=== PATIENT | female | born 1945 | race Caucasian/White ===

== ENCOUNTER → 2017-02-06 | Outpatient (CLI) | payer MEDICARE ==
[2016-06-18 15:12] VITALS: BP 137/73
[~2017-02-06] MED LIST: ALEN70TA3 PO; ASPI81TA2 PO; ATEN100T PO; DICY10CA53 PO; GABA600T2 PO; GLIP5TAB10 PO; LEVO125T5 PO; LIPITOR80 MG PO; LISI-334 PO; MAG30ORA2 PO; METF500T4 PO; NIAC500T PO; OMEP20TA63 PO; ONDA4TAB12 PO; PARO30TA3 PO; lortab; tricor
--- NOTE | 2017-02-07 13:56 | RAD ---
DATE: 02/06/2017 EXAM: DIGITAL SCREEN BILAT W/CAD HISTORY: Screening. The positive family history for breast malignancy is noted COMPARISON: 02/26/2016 This study was interpreted with the benefit of Computerized Aided Detection (CAD). FINDINGS: The breast parenchyma shows scattered fibroglandular densities. Breast parenchyma level B. There is a density in the right breast on the CC view laterally virtually identical to an examination 02/05/2015. Occasional benign-appearing calcifications are noted in both breasts. Lymph nodes are noted in both axilla left greater than right. A significant change in the appearance of the breasts compared to the previous exam is not seen. IMPRESSION: Benign finding BI-RADS CATEGORY: 2 BENIGN FINDING(S) RECOMMENDED FOLLOW-UP: 12M 12 MONTH FOLLOW-UP PQRS compliance statement: Patient information was entered into a reminder system with a target due date 02/06/2018 for the next mammogram. Mammography is a sensitive method for finding small breast cancers, but it does not detect them all and is not a substitute for careful clinical examination. A negative mammogram does not negate a clinically suspicious finding and should not result in delay in biopsying a clinically suspicious abnormality. "Our facility is accredited by the [employer] Mammography Program."
== END | disposition home or self-care (01) ==
LOC: MAMMO 13:39
PROVIDERS: ATTEND Family Medicine
DX: Z12.31 Encounter for screening mammogram for malignant neoplasm of breast (principal)
CPT/HCPCS: G0202; 77067

== ENCOUNTER → 2017-03-22 | Day surgery (SDC) | payer BC, MEDICARE ==
[~2017-03-22] MED LIST changes: +CALC600T4 PO; +FENO160T PO; +HYDR-2680 PO; +IV RINGERS,LACTATED 1000ML 1,000 ML IV SCH; +LIDOCAINE 2% PF Vial for OR 5 ML VIAL. ONE; +MV-M1TAB7 PO; +PROPOFOL 40 ML IV ONE
[2017-03-22 09:00] VITALS: BP 126/67
--- NOTE | 2017-03-22 23:43 | HP ---
ADMIT DATE: 03/22/2017 REFERRING PHYSICIAN: Dr. Gildardo Ba. HISTORY OF PRESENT ILLNESS: This is a 72-year-old female whose past medical history is significant for hypothyroidism, diabetes, hypertension, hyperlipidemia, depression and dysphagia and also history of colonic polyps seen with change in bowel habits. She has alternating diarrhea and constipation with diffuse abdominal pain. No bleeding is noted. Weight is decreased approximately 10 pounds since being seen in the office. She also noted dysphagia for solids in the substernal location and minimal heartburn is noted. Previous endoscopy had been postponed due to fever. She does take metformin as noted as well with the diarrhea and is here today for further evaluation. PAST MEDICAL HISTORY: History of colon polyps, hypothyroidism, diabetes, hypertension, hyperlipidemia and organic heart disease. FAMILY AND SOCIAL HISTORY: There is a history of hypertension with parents as child, diabetes with parent, sibling and child, cerebrovascular accident with her father and ulcerative colitis with her mother. She is a former smoker. She does not drink at this time. MEDICATIONS: Include Fosamax, aspirin, atenolol, atorvastatin, dicyclomine, fenofibrate, gabapentin, glipizide, hydrocodone, ____, lisinopril, metformin, niacin and omeprazole. REVIEW OF SYSTEMS: Per records. PAST SURGICAL HISTORY: Significant for hemorrhoidectomy, hysterectomy, cholecystectomy, appendectomy and breast surgery. PHYSICAL EXAMINATION: VITAL SIGNS: Temperature is 98.5, pulse 79, respiration rate 18. HEENT: Normocephalic, atraumatic head. Pupils and extraocular muscles not tested. Sclerae anicteric. NECK: Supple. LUNGS: Clear. CARDIOVASCULAR: Reveals an S1, S2 without S3, S4 or appreciable murmur. ABDOMEN: Soft abdomen, normal bowel sounds, without appreciable hepatosplenomegaly. Epigastric tenderness to palpation. Multiple surgical incisions are noted. EXTREMITIES: Reveals no cyanosis, clubbing or edema. IMPRESSION: 1. Dysphagia, etiology is to be determined. Differential includes Schatzki's ring, malignancy, Fosamax induced distal stricture, Camacho's, achalasia, eosinophilic esophagitis. We will therefore recommend upper endoscopy, possible biopsy and dilatation. Risks and benefits of procedure including risk of hemorrhage or perforation were discussed. The patient is willing to proceed at this time. 2. History of colon polyps, change in bowel habits. Differential includes metformin-induced diarrhea, irritable bowel syndrome, collagenous colitis, inflammatory bowel disease, colon polyps, colon cancer among others. We will, therefore, recommend colonoscopy to further assess. YARY PHIPPS MD DR: Buzz JOB#: [id number] / [id number]
--- NOTE | 2017-03-24 17:20 | PATHOLOGY ---
PATHOLOGY REPORT * * * * * * * * FINAL DIAGNOSIS: Random colon biopsy: - Focal mild acute colitis. See comment. COMMENT: Sections of the random colon biopsy reveal multiple segments of colonic mucosa. There are patchy areas showing a few neutrophils within the lamina propria. The findings are suggestive of an acute self limited colitis. There is no evidence of a chronic destructive colitis, lymphocytic colitis, or collagenous colitis. REPORT ELECTRONICALLY SIGNED BY: Te Scanlon M.D. DATE/TIME: 03/24/2017 17:19 * * * * * * * * GROSS PATHOLOGY: Received in formalin labeled "Ermias Colindres, random colon biopsy," are multiple segments of driver soft tissue measuring 0.8 cm in aggregate dimensions and ranging from 0.1 to 0.3 cm in maximum dimension. The specimen is submitted entirely in cassette A1. (SNA; 03/23/2017) INITIAL CPT CODE(S): A; 72226 Professional services performed by [facility] [place] [address] Technical services performed by [facility] at [address] [place] [address]. SPECIMEN(S) RECEIVED: A.Random colon biopsy CLINICAL HISTORY: Diarrhea, abdominal pain, dysphagia; r/o microscopic colitis PATIENT: ERMIAS JOYA /AGE: 201/14/1945 (Age: 72) PATIENT #: [id number] ALT CASE #: SPECIMEN COLLECTION DATE: 03/22/2017 SPECIMEN RECEIVED DATE: 03/22/2017 [facility] - [address] [place] [address] - PHONE: [phone] * * * END OF REPORT * * *
== END | disposition home or self-care (01) ==
LOC: ENDOS 07:20
PROVIDERS: ATTEND Internal Medicine Gastroenterology
DX: K64.0 First degree hemorrhoids (principal); K29.70 Gastritis, unspecified, without bleeding; K22.2 Esophageal obstruction; E78.00 Pure hypercholesterolemia, unspecified; I10 Essential (primary) hypertension; E11.9 Type 2 diabetes mellitus without complications; E03.9 Hypothyroidism, unspecified; F41.9 Anxiety disorder, unspecified; F32.9 Major depressive disorder, single episode, unspecified; Z90.49 Acquired absence of other specified parts of digestive tract; Z90.710 Acquired absence of both cervix and uterus
CPT/HCPCS: 43235; 43450; 45380; J2704; 88305

== ENCOUNTER 2017-11-30 20:33 | Inpatient (IN) | payer BC ==
[2017-11-30 23:30] LABS: ADD MAN DIFF? NO
[2017-11-30 23:32] LABS: BASO # 0.1 x10^3/uL (0.0-0.2); BASO % 1 % (0-3); EOS % 0 % (0-3); HEMATOCRIT 39.2 % (36.0-47.0); LYMPH # 2.2 x10^3/uL (1.0-4.8); LYMPH % 15 % (24-48); MEAN CORPUSCULAR HEMOGLOBIN 31 pg (25-35); MEAN CORPUSCULAR HGB CONC 33 g/dL (31-37); MEAN CORPUSCULAR VOLUME 93 fL (79-100); MONO # 0.7 x10^3/uL (0.0-1.1); MONO % 5 % (0-9); NEUT # 11.6 x10^3uL (1.8-7.7); NEUT % 79 % (31-73); PLATELET COUNT 281 x10^3/uL (140-400); RED BLOOD COUNT 4.24 x10^6/uL (3.50-5.40); RED CELL DISTRIBUTION WIDTH 13.1 % (11.5-14.5); WHITE BLOOD COUNT 14.7 x10^3/uL (4.0-11.0)
[2017-11-30 23:43] LABS: ANION GAP 11 (6-14); BLOOD UREA NITROGEN 10 mg/dL (7-20); BUN/CREATININE RATIO 17 (6-20); CALCIUM 9.1 mg/dL (8.5-10.1); CARBON DIOXIDE 27 mmol/L (21-32); CHLORIDE 101 mmol/L (98-107); CREATININE 0.6 mg/dL (0.6-1.0); GFR 97.7; GLUCOSE 91 mg/dL (70-99); POTASSIUM 3.6 mmol/L (3.5-5.1); SODIUM 139 mmol/L (136-145)
[2017-11-30 23:48] LABS: INR 1.2 (0.8-1.1); PARTIAL THROMBOPLASTIN TIME 24 SEC (24-38); PROTHROMBIN TIME PATIENT 14.2 SEC (11.7-14.0)
[2017-11-30 23:49] LABS: ALBUMIN 4.3 g/dL (3.4-5.0); ALBUMIN/GLOBULIN RATIO 1.3 (1.0-1.7); ALK PHOS 31 U/L (46-116); ALT (SGPT) 22 U/L (14-59); AST (SGOT) 24 U/L (15-37); TOTAL BILIRUBIN 0.4 mg/dL (0.2-1.0); TOTAL PROTEIN 7.7 g/dL (6.4-8.2)
[2017-12-01] MEDS: ONDANSETRON PF 4 MG/2 ML VIAL. IV (04:42)
[2017-12-01] MEDS: fentaNYL PF VIAL 100 MCG/2 ML VIAL IV (04:42)
[2017-12-01] MEDS: IV NORMAL SALINE 1000ML BAG 1,000 ML IV (05:30)
[2017-12-01] MEDS ORDERED: fentaNYL PF VIAL 100 MCG/2 ML VIAL IV (06:00)
[2017-12-01] MEDS ORDERED: ONDANSETRON ODT 4 MG TAB.RAPDIS. PO (07:45)
[2017-12-01] MEDS ORDERED: MAG HYDROX/ALUMINUM HYD/SIMETH 30 ML ORAL.SUSP PO (07:45)
[2017-12-01 09:41] LABS: POC GLUCOSE 105 mg/dL (70-99)
[2017-12-01] MEDS: CALCIUM CARBONATE 500 MG TABLET PO (10:31)
[2017-12-01] MEDS: PANTOPRAZOLE 40 MG TABLET.DR. PO (10:32)
[2017-12-01] MEDS: OXYBUTYNIN CHLORIDE 5 MG TABLET PO (10:32)
[2017-12-01] MEDS: FENOFIBRATE,MICRONIZED 134 MG CAPSULE PO (10:32)
[2017-12-01] MEDS: metFORMIN 500 MG TABLET PO (10:32)
[2017-12-01] MEDS: DICYCLOMINE HCL 10 MG CAPSULE PO ×2 (10:32→14:02)
[2017-12-01] MEDS: GABAPENTIN 300 MG CAPSULE. PO (10:32)
[2017-12-01] MEDS: LISINOPRIL 20 MG TABLET PO (10:33)
[2017-12-01] MEDS: METOPROLOL TART IMMED RELEASE 50 MG TABLET. PO (10:34)
[2017-12-01] MEDS: PARoxetine 10 MG TABLET PO (10:35)
[2017-12-01] MEDS: HYDROcodone/APAP 10/325 1 TAB TABLET PO (10:37)
[2017-12-01 12:31] LABS: POC GLUCOSE 140 mg/dL (70-99)
[2017-12-01 12:44] LABS: BILIRUBIN,URINE NEGATIVE (NEG); CLARITY,URINE CLEAR; COLOR,URINE YELLOW; GLUCOSE,URINE NEGATIVE (NEG); NITRITE,URINE NEGATIVE (NEG); PH,URINE 7.5; PROTEIN,URINE NEGATIVE (NEG-TRACE)
[2017-12-01 12:51] LABS: BACTERIA,URINE FEW /HPF (0-FEW); RBC,URINE 0 /HPF (0-2)
[2017-12-01 19:17] LABS: MRSA BY PCR Positive (Negative)
[2017-12-01] MEDS ORDERED: ATORVASTATIN CALCIUM 40 MG TABLET. PO (21:00)
== END 2017-12-01 14:25 | disposition home or self-care (01) | DRG 87 ==
LOC: 1 WEST ICU 22:35 → ER 20:33
DX: S06.300A Unspecified focal traumatic brain injury without loss of consciousness, initial encounter (principal); E11.9 Type 2 diabetes mellitus without complications; E03.9 Hypothyroidism, unspecified; E78.00 Pure hypercholesterolemia, unspecified; D72.829 Elevated white blood cell count, unspecified; I10 Essential (primary) hypertension; W19.XXXA Unspecified fall, initial encounter; M54.5 Low back pain; G89.29 Other chronic pain; I25.10 Atherosclerotic heart disease of native coronary artery without angina pectoris; M81.0 Age-related osteoporosis without current pathological fracture; K21.9 Gastro-esophageal reflux disease without esophagitis; F41.9 Anxiety disorder, unspecified; E78.5 Hyperlipidemia, unspecified; M19.90 Unspecified osteoarthritis, unspecified site; W01.10XA Fall on same level from slipping, tripping and stumbling with subsequent striking against unspecified object, initial encounter; Y93.89 Activity, other specified; Y92.098 Other place in other non-institutional residence as the place of occurrence of the external cause; Y99.8 Other external cause status; Z90.49 Acquired absence of other specified parts of digestive tract; Z98.51 Tubal ligation status; Z90.710 Acquired absence of both cervix and uterus; Z90.722 Acquired absence of ovaries, bilateral; Z79.899 Other long term (current) drug therapy
CPT/HCPCS: 36415; 70450; 70486; 72125; 72170; 80053; 81001; 82962; 85025; 85610; 85730; 87086; 87641; 96374; 96375; 99285; 99285-25; J2405; J3010; J7030

== ENCOUNTER → 2017-12-07 | Outpatient (CLI) | payer BC | END | disposition home or self-care (01) | LOC: KCIC CT 14:52 | DX: I62.9 Nontraumatic intracranial hemorrhage, unspecified (principal) | CPT/HCPCS: 70450 ==

== ENCOUNTER → 2018-01-24 | Outpatient (CLI) | payer BC ==
[~2018-01-24] MED LIST changes: -ALEN70TA3 PO; -ASPI81TA2 PO; -ATEN100T PO; -CALC600T4 PO; -DICY10CA53 PO; -FENO160T PO; -GABA600T2 PO; -GLIP5TAB10 PO; -HYDR-2680 PO; +IOHEXOL 240 MG/ML 50ML VIAL. PO; +IOHEXOL 300 MG/ML 100ML VIAL. IV; -IV RINGERS,LACTATED 1000ML 1,000 ML IV SCH; -LEVO125T5 PO; -LIDOCAINE 2% PF Vial for OR 5 ML VIAL. ONE; -LIPITOR80 MG PO; -LISI-334 PO; -MAG30ORA2 PO; -METF500T4 PO; -MV-M1TAB7 PO; -NIAC500T PO; -OMEP20TA63 PO; -ONDA4TAB12 PO; -PARO30TA3 PO; -PROPOFOL 40 ML IV ONE; -lortab; -tricor
[2018-01-24] MEDS: IOHEXOL 240 MG/ML 50ML VIAL. PO (08:45)
[2018-01-24] MEDS: IOHEXOL 300 MG/ML 100ML VIAL. IV (10:27)
[2018-01-24 10:43] LABS: ISTAT CREATININE 0.6 mg/dL (0.6-1.1)
== END | disposition home or self-care (01) ==
LOC: KCIC CT 08:39
DX: K76.0 Fatty (change of) liver, not elsewhere classified (principal); N81.10 Cystocele, unspecified; N81.6 Rectocele; Z90.49 Acquired absence of other specified parts of digestive tract; R63.4 Abnormal weight loss
CPT/HCPCS: 70450; 74177; 82565; Q9966; Q9967

== ENCOUNTER → 2018-05-29 | Outpatient (CLI) | payer BC ==
[2018-05-29 11:22] LABS: ISTAT CREATININE 0.7 mg/dL (0.6-1.1)
[2018-05-29] MEDS: IOHEXOL 240 MG/ML 50ML VIAL. PO (11:47)
[2018-05-29] MEDS: IOHEXOL 300 MG/ML 100ML VIAL. IV (11:47)
== END | disposition home or self-care (01) ==
LOC: KCIC CT 09:46
DX: M47.896 Other spondylosis, lumbar region (principal); I51.7 Cardiomegaly; I10 Essential (primary) hypertension; E11.9 Type 2 diabetes mellitus without complications; E78.5 Hyperlipidemia, unspecified; E78.00 Pure hypercholesterolemia, unspecified; E03.9 Hypothyroidism, unspecified; K21.9 Gastro-esophageal reflux disease without esophagitis; Z90.49 Acquired absence of other specified parts of digestive tract
CPT/HCPCS: 74177; 82565; Q9966; Q9967

== ENCOUNTER 2018-05-31 13:46 | Observation (INO) | payer BC ==
[2018-05-31 14:21] LABS: ADD MAN DIFF? NO
[2018-05-31 14:29] LABS: BASO # 0.1 x10^3/uL (0.0-0.2); BASO % 1 % (0-3); EOS # 0.1 x10^3/uL (0.0-0.7); EOS % 1 % (0-3); HEMATOCRIT 37.6 % (36.0-47.0); HEMOGLOBIN 12.7 g/dL (12.0-15.5); LYMPH # 2.8 x10^3/uL (1.0-4.8); LYMPH % 36 % (24-48); MEAN CORPUSCULAR HEMOGLOBIN 31 pg (25-35); MEAN CORPUSCULAR HGB CONC 34 g/dL (31-37); MEAN CORPUSCULAR VOLUME 92 fL (79-100); MONO # 0.6 x10^3/uL (0.0-1.1); MONO % 8 % (0-9); NEUT # 4.3 x10^3uL (1.8-7.7); NEUT % 55 % (31-73); PLATELET COUNT 315 x10^3/uL (140-400); RED CELL DISTRIBUTION WIDTH 14.6 % (11.5-14.5); WHITE BLOOD COUNT 7.9 x10^3/uL (4.0-11.0)
[2018-05-31 14:46] LABS: ANION GAP 7 (6-14); BLOOD UREA NITROGEN 13 mg/dL (7-20); BUN/CREATININE RATIO 16 (6-20); CALCIUM 9.2 mg/dL (8.5-10.1); CARBON DIOXIDE 28 mmol/L (21-32); CHLORIDE 103 mmol/L (98-107); CREATININE 0.8 mg/dL (0.6-1.0); GFR 69.9; GLUCOSE 175 mg/dL (70-99); POTASSIUM 3.8 mmol/L (3.5-5.1); SODIUM 138 mmol/L (136-145)
[2018-05-31 14:51] LABS: ALBUMIN 4.1 g/dL (3.4-5.0); ALBUMIN/GLOBULIN RATIO 1.2 (1.0-1.7); ALK PHOS 39 U/L (46-116); ALT (SGPT) 19 U/L (14-59); AST (SGOT) 21 U/L (15-37); TOTAL BILIRUBIN 0.4 mg/dL (0.2-1.0); TOTAL PROTEIN 7.6 g/dL (6.4-8.2)
[2018-05-31 14:51] LABS: TROPONINI < 0.017 ng/mL (0.000-0.055)
[2018-05-31 14:56] LABS: THYROID STIM HORMONE (TSH) 0.218 uIU/mL (0.358-3.74)
[2018-05-31 15:05] LABS: INR 0.9 (0.8-1.1); PARTIAL THROMBOPLASTIN TIME 21 SEC (24-38); PROTHROMBIN TIME PATIENT 11.4 SEC (11.7-14.0)
[2018-05-31] MEDS ORDERED: ONDANSETRON PF 4 MG/2 ML VIAL. IV (15:15)
[2018-05-31] MEDS ORDERED: ACETAMINOPHEN 325 MG TABLET. PO (15:15)
[2018-05-31] MEDS ORDERED: NITROGLYCERIN SUBLINGUAL 0.4 MG BOTTLE OF 25. SL (15:15)
[2018-05-31 18:43] LABS: TROPONINI < 0.017 ng/mL (0.000-0.055)
[2018-05-31] MEDS ORDERED: ONDANSETRON ODT 4 MG TAB.RAPDIS. PO (20:15)
[2018-05-31] MEDS ORDERED: HYDROcodone/APAP 10/325 1 TAB TABLET PO (20:30)
[2018-05-31] MEDS ORDERED: hydrOXYzine PAMOATE 25 MG CAPSULE PO (20:30)
[2018-05-31] MEDS: ATORVASTATIN CALCIUM 40 MG TABLET. PO (20:59)
[2018-05-31] MEDS: DICYCLOMINE HCL 10 MG CAPSULE PO (20:59)
[2018-05-31] MEDS: LISINOPRIL 20 MG TABLET PO (21:00)
[2018-05-31] MEDS: GABAPENTIN 300 MG CAPSULE. PO (21:00)
[2018-05-31] MEDS: ATENOLOL 50 MG TABLET. PO (21:01)
[2018-05-31] MEDS: PANTOPRAZOLE 40 MG TABLET.DR. PO (21:27)
[2018-05-31 21:58] LABS: TROPONINI < 0.017 ng/mL (0.000-0.055)
[2018-06-01 04:20] LABS: MRSA BY PCR Positive (Negative)
[2018-06-01 04:26] LABS: CHOLESTEROL 151 mg/dL (0-200); HDLC 23 mg/dL (40-60); LDLC 103 mg/dL (0-100); NON-HDL CHOLESTEROL 128 mg/dL (0-129); TRIGLYCERIDES 123 mg/dL (0-150); VLDLC 25 mg/dL (0-40)
[2018-06-01 04:28] LABS: CHOLESTEROL/HDL RATIO 6.6
[2018-06-01] MEDS: GABAPENTIN 300 MG CAPSULE. PO ×2 (09:00→13:30)
[2018-06-01] MEDS: REGADENOSON 0.4 MG/5 ML DISP.SYRIN. IV (09:51)
[2018-06-01] MEDS: PANTOPRAZOLE 40 MG TABLET.DR. PO (10:34)
[2018-06-01] MEDS: DICYCLOMINE HCL 10 MG CAPSULE PO ×2 (10:34→13:36)
[2018-06-01] MEDS: ATENOLOL 50 MG TABLET. PO (10:35)
[2018-06-01] MEDS: LISINOPRIL 20 MG TABLET PO (10:35)
[2018-06-01] MEDS: ASPIRIN CHEWABLE 81 MG TABLET. PO (13:36)
[2018-06-01] MEDS: buPROPion XL 150 MG TAB.ER.24H. PO (13:36)
[2018-06-01] MEDS: CHOLECALCIFEROL (VITAMIN D3) 1,000 UNIT TABLET PO (13:36)
[2018-06-01] MEDS: FOLIC ACID 1 MG TABLET. PO (13:36)
[2018-06-01] MEDS ORDERED: CALCIUM CARB/VIT D3 500/200 TABLET. PO (17:00)
[2018-06-02] MEDS ORDERED: LEVOTHYROXINE 50 MCG TABLET PO (07:00)
[2018-06-08] MEDS ORDERED: NON FORMULARY ITEM (Alendronate Sodium (Fosamax) 1 TAB) PO (09:00)
== END 2018-06-01 14:53 | disposition home or self-care (01) ==
LOC: ER 13:46 → 5 NORTH 14:30
DX: K21.9 Gastro-esophageal reflux disease without esophagitis (principal); E03.9 Hypothyroidism, unspecified; E11.9 Type 2 diabetes mellitus without complications; E78.5 Hyperlipidemia, unspecified; I10 Essential (primary) hypertension; I25.10 Atherosclerotic heart disease of native coronary artery without angina pectoris; M81.0 Age-related osteoporosis without current pathological fracture; F32.9 Major depressive disorder, single episode, unspecified; G89.29 Other chronic pain; M19.90 Unspecified osteoarthritis, unspecified site; F41.1 Generalized anxiety disorder; Z82.3 Family history of stroke; Z82.49 Family history of ischemic heart disease and other diseases of the circulatory system; Z83.3 Family history of diabetes mellitus; Z87.891 Personal history of nicotine dependence; Z90.49 Acquired absence of other specified parts of digestive tract; Z90.710 Acquired absence of both cervix and uterus; Z95.5 Presence of coronary angioplasty implant and graft; Z98.51 Tubal ligation status
CPT/HCPCS: 36415; 71045; 74177; 78452; 80053; 80061; 82565; 84443; 84484; 85025; 85610; 85730; 87641; 93005; 93017; 93306; 96374; 96375; 96376; 99285-25; A9500; G0378; G0379; J2785; Q9966; Q9967

== ENCOUNTER → 2019-09-09 | Outpatient (CLI) | payer BC ==
[2018-06-01 11:00] VITALS: BP 121/71
[~2019-09-09] MED LIST changes: +ALEN70TA3 PO; +ASPI-630 PO; +ATEN100T PO; +ATEN50TA PO; +BUPR150T6 PO; +CALC1TAB75 PO; +CALC600T4 PO; +CHOL10003 PO; +CHOL200074 PO; +DICY10CA3 PO; +DICY10CA53 PO; +FENO160T PO; +FOLI1TAB16 PO; +GABA600T7 PO; +GLIP5TAB10 PO; +HYDR-2680 PO; +HYDR25CA PO; -IOHEXOL 240 MG/ML 50ML VIAL. PO; -IOHEXOL 300 MG/ML 100ML VIAL. IV; +LEVO100T5 PO; +LEVO125T5 PO; +LEVO50TA5 PO; +LIPITOR80 MG PO; +LISI-334 PO; +MAG30ORA2 PO; +METF500T16 PO; +MV-M1TAB7 PO; +NIAC500T PO; +OMEP20TA63 PO; +ONDA4TAB10 SL; +ONDA4TAB12 PO; +OXYB5TAB10 PO; +PARO30TA3 PO; +lortab; +tricor
--- NOTE | 2019-09-09 15:37 | RAD ---
DATE: 09/09/2019. EXAM: DIGITAL SCREEN BILAT W/CAD. HISTORY: Routine mammographic screening. COMPARISON: 02/06/2017. This study was interpreted with the benefit of Computerized Aided Detection (CAD). FINDINGS: Breast Density: SCATTERED The breast parenchyma shows scattered fibroglandular densities. Breast parenchyma level B.. Scattered, secretory and coarse calcifications are benign. Bilateral nipple retraction is stable chronically. There are no suspicious masses, microcalcifications or architectural distortion. The parenchymal pattern is stable. BI-RADS CATEGORY: 2 BENIGN FINDING(S). RECOMMENDED FOLLOW-UP: 12M 12 MONTH FOLLOW-UP. PQRS compliance statement: Patient information was entered into a reminder system with a target due date 09/09/2020 for the next mammogram. Mammography is a sensitive method for finding small breast cancers, but it does not detect them all and is not a substitute for careful clinical examination. A negative mammogram does not negate a clinically suspicious finding and should not result in delay in biopsying a clinically suspicious abnormality. "Our facility is accredited by the [employer] Mammography Program."
== END | disposition home or self-care (01) ==
LOC: MAMMO 14:45
PROVIDERS: ATTEND Family Medicine
DX: Z12.31 Encounter for screening mammogram for malignant neoplasm of breast (principal); N64.89 Other specified disorders of breast
CPT/HCPCS: 77067

== ENCOUNTER → 2020-09-04 | Outpatient (CLI) | payer BC ==
[2018-06-01 11:00] VITALS: BP 121/71
[~2020-09-04] MED LIST changes: +CALC-627 PO; -CALC1TAB75 PO; -CALC600T4 PO; +CALC600T6 PO
--- NOTE | 2020-09-04 16:26 | KCIC ---
CERVICAL SPINE 2-3V History: Chronic neck pain Comparison: CT cervical spine exam November 30, 2017. Findings: 4 views of cervical spine are submitted. Cervical vertebral body stature and AP alignment are maintained. There is mild degenerative disc disease C5-6 and C6-7. There is also spondylosis at these levels. There is adequate alignment of the lateral masses of C1 relative to C2. Atlantoaxial distance is within normal limits. There is multilevel cervical facet degenerative change. Impression: 1. There is multilevel cervical facet degenerative change. There is mild degenerative disc disease and spondylosis at C5-6 and C6-7. Electronically signed by: Guille Woodson MD (09/04/2020 4:24 PM) [facility]
== END ==
LOC: KCIC 15:41
PROVIDERS: ATTEND Family Medicine
DX: M47.812 Spondylosis without myelopathy or radiculopathy, cervical region (principal); M50.323 Other cervical disc degeneration at C6-C7 level
CPT/HCPCS: 72040

== ENCOUNTER → 2020-09-16 | Outpatient (CLI) | payer BC ==
[2018-06-01 11:00] VITALS: BP 121/71
--- NOTE | 2020-09-16 11:04 | RAD ---
BILATERAL SCREENING MAMMOGRAM History: Routine screening. Comparison: 09/09/2019 02/06/2017, 02/26/2016, 02/06/2000 Technique: Routine bilateral digital mammogram views were obtained. Findings: Breast Tissue Density B : There are scattered areas of fibroglandular density. There are no dominant masses, suspicious microcalcifications, or architectural distortion. IMPRESSION: No mammographic evidence of malignancy. Recommend routine screening. BI-RADS category 1: Negative. The images were reviewed with computer aided detection. Patient information is entered into the reminder system with a target due date for the next screening mammogram. Mammography is the most sensitive method for finding small breast cancers, but it does not detect them all and is not a substitute for careful clinical examination. A negative mammogram does not negate a clinically suspicious finding and should not result in delay in biopsying a clinically suspicious abnormality. "Our facility is accredited by the [employer] Mammography Program." Electronically signed by: Reginald Decker MD (09/16/2020 11:00 AM) [id number]
== END ==
LOC: MAMMO 09:05
PROVIDERS: ATTEND Family Medicine
DX: Z12.31 Encounter for screening mammogram for malignant neoplasm of breast (principal)
CPT/HCPCS: 77067

== ENCOUNTER 2021-03-11 23:00 | Emergency (ER) | payer BC ==
[~2021-03-11] VITALS: Ht 154.9 cm; Wt 50.1 kg
[~2021-03-11 23:00] MED LIST changes: +BUPR150T21 PO; -BUPR150T6 PO; -CALC600T6 PO; +CALC600T60 PO; -LISI-334 PO; +LISI20TA18 PO
--- NOTE | 2021-03-11 23:58 | PHYS DOC ---
Past Medical History Past Medical History: Arthritis, CAD, GERD, High Cholesterol, Hypertension, Hypothyroid, Other Additional Past Medical Histor: osteoporosis; Chronic LBP; Chronic SNOW Past Surgical History: Appendectomy, Cholecystectomy, Hysterectomy, Tonsillectomy, Tubal ligation, Other Additional Past Surgical Histo: cardiac cath with stent; right shoulder; right ankle Smoking Status: Former Smoker Alcohol Use: None Drug Use: None General Adult EDM: Chief Complaint: FOOT INJURY PAIN HPI: HPI: Patient is a 76 year old female presents with a chief complaint of right foot pain. Patient states this a.m. around 1100 hrs. she injured her right foot on a door. Patient's foot pain is located on the top of her right foot. No injuries to patient right ankle or knee. Review of Systems: Review of Systems: Constitutional: Denies fever or chills. [] Eyes: Denies change in visual acuity. [] HENT: Denies nasal congestion or sore throat. [] Respiratory: Denies cough or shortness of breath. [] Cardiovascular: Denies chest pain or edema. [] GI: Denies abdominal pain, nausea, vomiting, bloody stools or diarrhea. [] : Denies dysuria. [] Musculoskeletal: Denies back pain or joint pain. [] Integument: Denies rash. [] Neurologic: Denies headache, focal weakness or sensory changes. [] Endocrine: Denies polyuria or polydipsia. [] Lymphatic: Denies swollen glands. [] Psychiatric: Denies depression or anxiety. [] Heart Score: C/O Chest Pain: N/A Risk Factors: Risk Factors: DM, Current or recent (<one month) smoker, HTN, HLP, family his tory of CAD, obesity. Risk Scores: Score 0 - 3: 2.5% MACE over next 6 weeks - Discharge Home Score 4 - 6: 20.3% MACE over next 6 weeks - Admit for Clinical Observation Score 7 - 10: 72.7% MACE over next 6 weeks - Early Invasive Strategies Current Medications: Current Medications Medications (Trade) Dose Ordered Sig/Louie Start Time Stop Time Status Last Admin Dose Admin Acetaminophen/ Hydrocodone Bitart (Lortab 5/325) 1 tab 1X ONCE 03/12/21 00:30 03/12/21 00:31 Allergies: Allergies: Allergies Coded Allergies Type Severity Reaction Last Updated Verified I S O L A T I O N *CONTACT* Allergy Unknown 12/04/17 Yes No Known Medication Allergies Allergy Unknown 12/04/17 Yes Physical Exam: PE: Constitutional: Well developed, well nourished, no acute distress, non-toxic appearance. [] HENT: Normocephalic, atraumatic, bilateral external ears normal, oropharynx moist, no oral exudates, nose normal. [] Eyes: PERRLA, EOMI, conjunctiva normal, no discharge. [] Neck: Normal range of motion, no tenderness, supple, no stridor. [] Cardiovascular:Heart rate regular rhythm, no murmur [] Lungs & Thorax: Bilateral breath sounds clear to auscultation [] Abdomen: Bowel sounds normal, soft, no tenderness, no masses, no pulsatile masses. [] Skin: Warm, dry, no erythema, no rash. [] Back: No tenderness, no CVA tenderness. [] Extremities: No tenderness, no cyanosis, no clubbing, ROM intact, no edema. [] Neurologic: Alert and oriented X 3, normal motor function, normal sensory function, no focal deficits noted. [] Psychologic: Affect normal, judgement normal, mood normal. [] Current Patient Data: Vital Signs: Vital Signs Date Time Temp Pulse Resp B/P (MAP) Pulse Ox O2 Delivery O2 Flow Rate FiO2 03/11/21 23:39 99.2 84 18 98 Room Air 99.2 EKG: EKG: [] Radiology/Procedures: Radiology/Procedures: [] Impression: xray no acute fracture Course & Med Decision Making: Course & Med Decision Making Pertinent Labs and Imaging studies reviewed. (See chart for details) []pain treated with norco with improvement. Patient to be discharged home. [employer] Disclaimer: [employer] Disclaimer: This electronic medical record was generated, in whole or in part, using a voice recognition dictation system. Departure Departure Impression: Primary Impression: Foot pain, right Additional Impression: Contusion Disposition: 01 HOME / SELF CARE / HOMELESS Condition: STABLE Referrals: SAHIL BRUMFIELD MD (PCP) Patient Instructions: Diabetes and Foot Care SACHA SUAREZ DO Mar 11, 2021 23:58
--- NOTE | 2021-03-12 00:23 | RAD ---
Study: XR FOOT_RIGHT 3 VIEWS Indication: Pain. Comparison: None. Findings: No acute fracture is identified throughout the foot. The provided history is "pain" so it is uncertai n if there is focal discomfort. No traumatic malalignment. There is the suggestion of mild hallux luanne didi but assessment is limited without weightbearing. Osteopenia. Plate and screw construct at the distal fibula and medial malleolar screws. The hardware is intact. Faint lucency along the most distal fibular screw is less than 2 mm in width. Mild scatter ed arthrosis. No retained radiopaque foreign body seen within the soft tissues. Impression: 1. No acute radiographic abnormality seen throughout the right foot. 2. Intact distal fibula and medial malleolus surgical hardware. 3. Osteopenia. Electronically signed by: SABI STAHL MD (03/12/2021 12:20 AM) [facility] [place]
[2021-03-12] MEDS ORDERED: HYDROcodone/APAP 10/325 1 TAB TABLET PO ONE (00:30)
[2021-03-12] MEDS ORDERED: HYDROcodone/APAP 5/325MG 1 TAB TABLET PO ONE (00:30)
[2021-03-12 00:43] VITALS: BP 181/75
== END 2021-03-12 01:06 | disposition home or self-care (01) ==
LOC: ER 23:00
DX: S90.31XA Contusion of right foot, initial encounter (principal); M79.671 Pain in right foot; M19.90 Unspecified osteoarthritis, unspecified site; K21.9 Gastro-esophageal reflux disease without esophagitis; E78.00 Pure hypercholesterolemia, unspecified; I11.9 Hypertensive heart disease without heart failure; E03.9 Hypothyroidism, unspecified; Z90.89 Acquired absence of other organs; Z90.49 Acquired absence of other specified parts of digestive tract; Z98.51 Tubal ligation status; Z98.890 Other specified postprocedural states; X58.XXXA Exposure to other specified factors, initial encounter; Y93.89 Activity, other specified; Y92.89 Other specified places as the place of occurrence of the external cause; Y99.8 Other external cause status
CPT/HCPCS: 73630; 99283

== ENCOUNTER → 2021-11-24 | Outpatient (CLI) | payer BC ==
[2021-04-24 11:00] VITALS: BP 176/86
[~2021-11-24] MED LIST changes: +ALBU2.5V8 NEB; +DULO30CA2 PO; +IRBE150T PO; +PIOG15TA42 PO
--- NOTE | 2021-11-24 11:20 | RAD ---
DATE: 11/24/2021 10:18 AM EXAM: US BREAST BILAT, MG DIAGNOSTIC BILAT HISTORY: 76-year-old female with right breast pain/nipple discharge. Patient reports resolution of ni pple discharge prior to today's visit. Right breast discharge-patient and daughter report right nippl e discharge was tested and yielded benign results COMPARISON: Bilateral screening mammograms dating back to 02/06/2017 Bilateral CC and MLO views of the breasts were performed. Bilateral breast tomosynthesis was performe d in CC and MLO projections. This study was interpreted with the benefit of Computerized Aided Detection (CAD). FINDINGS: MAMMOGRAM: Breast Density: SCATTERED The breast parenchyma shows scattered fibroglandular densities. Breast par enchyma level B Chronic appearance of bilateral inverted nipples. Left breast: 5 mm partially obscured oval mass at the 3:00 position, anterior depth. Scattered benign vascular nonvascular calcifications. Right breast: No suspicious masses, microcalcifications or architectural distortion is present to sug gest malignancy in either breast. Scattered benign vascular nonvascular calcifications. The visualized axillae are unremarkable. Right breast ultrasound: Targeted retroareolar right breast ultrasound reveals mild ductal ectasia wi th some intraluminal debris with no suspicious intraluminal or extraluminal abnormalities. No suspicious of a mallet in the right axilla. Left breast ultrasound: Targeted left breast ultrasound reveals a 6 mm circumscribed anechoic mass wh ich was contiguous with the duct on real-time imaging, consistent with a focally dilated duct. This i s felt to correlate in size, shape, and location with the mammographic finding. No suspicious abnormalities in the left axilla. IMPRESSION: No mammographic or sonographic evidence of malignancy. BI-RADS CATEGORY: 2 BENIGN FINDING(S) RECOMMENDED FOLLOW-UP: Annual screening mammography is recommended, unless clinically indicated soone r based on symptoms or change in physical exam. PQRS compliance statement: Patient information was entered into a reminder system with a target due d ate 11/24/2022 for the next mammogram. Mammography is a sensitive method for finding small breast cancers, but it does not detect them all a nd is not a substitute for careful clinical examination. A negative mammogram does not negate a clin ically suspicious finding and should not result in delay in biopsying a clinically suspicious abnorma lity. "Our facility is accredited by the [employer] Mammography Program." Electronically signed by: Bruce Arteaga DO (11/24/2021 11:17 AM) [email or web address]
== END ==
LOC: MAMMO 09:04
PROVIDERS: ATTEND Family Medicine
DX: N63.23 Unspecified lump in the left breast, lower outer quadrant (principal); N64.52 Nipple discharge
CPT/HCPCS: 77066; 76641-50